=== PATIENT | female | born 1990 | race Caucasian/White ===

== ENCOUNTER 2021-02-26 21:13 | Emergency (ER) | payer SELFPAY ==
[~2021-02-26] VITALS: Ht 160 cm; Wt 68.0 kg
[2021-02-26] MEDS ORDERED: MAGNESIUM/ALUMINUM HYDROXIDE/SIMETHICONE 30ML UDC PO ONE (23:00)
[2021-02-26] MEDS ORDERED: DIPHENHYDRAMINE 12.5MG/5ML UDC PO ONE (23:00)
[2021-02-26] MEDS ORDERED: FAMOTIDINE 20MG/2ML VIAL IV ONE (23:00)
[2021-02-26] MEDS ORDERED: VISCOUS LIDOCAINE 2% 15 ML UDC MM ONE (23:00)
[2021-02-27] MEDS ORDERED: TRAMADOL 50MG TABLET PO ONE
[2021-02-27] MEDS ORDERED: TRAM50TA MT (00:49)
[2021-02-27] MEDS ORDERED: ONDA4TAB11 PO (00:49)
[2021-02-27 01:09] VITALS: BP 130/85
== END 2021-02-27 01:20 | disposition home or self-care (01) ==
LOC: ER 21:13
DX: K21.9 Gastro-esophageal reflux disease without esophagitis (principal); R07.2 Precordial pain; R10.13 Epigastric pain; K27.9 Peptic ulcer, site unspecified, unspecified as acute or chronic, without hemorrhage or perforation; K29.70 Gastritis, unspecified, without bleeding
CPT/HCPCS: 96374; 99284; J3490; Q0163